=== PATIENT | female | born 2005 | race Caucasian/White ===

== ENCOUNTER 2024-05-09 12:18 | Emergency (ER) | payer OTHER, SELFPAY ==
--- NOTE | 2024-05-09 12:23 | ED.URI ---
HPI - URI/Sore Throat General Chief Complaint: Upper Respiratory Infection Stated Complaint: headache/sinus/throat History of Present Illness HPI Narrative: 19 y/o female presented for c/o sore throat, headache, and nasal congestion. Onset last night. Started z-pack this morning. Also taking Xycam and Sudafed. Denies cough, sob, wheezing, n/v/d/f/c. Related Data Allergies Allergy/AdvReac Type Severity Reaction Status Date / Time amoxicillin Allergy Mild Rash Verified 05/09/24 12:33 Cephalosporins Allergy Unknown RASH Verified 05/09/24 12:33 Penicillins Allergy Unknown Unknown Verified 05/09/24 12:33 Review of Systems Review of Systems: CONSTITUTIONAL: Denies body aches, fever, chills, or sweats. EYES: Denies visual changes, redness, or discharge. ENT: reports rhinorrhea, sore throat CARDIOVASCULAR: Denies chest pain, palpitations, or edema. RESPIRATORY: Denies dyspnea. GASTROINTESTINAL: Denies abdominal pain, nausea, vomiting, or diarrhea. SKIN: Denies rash NEUROLOGIC: reports headache PMFSH Past Medical History Medical History Depression with anxiety Fatigue Irregular menses Family History Family History Father Asthma Mother Depression Social History Social History Smoking status: Current every day smoker Tobacco type: e-cigarettes/vaping Gender identity (if verbalized by the patient): Female Exam Narrative: GENERAL: mildly ill-appearing, no acute distress. EYES: conjunctivae clear ENT: Mucous membranes moist. TM pearly chaves with normal light reflex bilaterally; no tragal tenderness. Oropharynx erythematous without lesions. Tonsils enlarged 1+ and without exudate. Hoarse voice. No drooling, no trismus, uvula midline. No tripod positioning, hot potato voice, or soft palate swelling. NECK: Supple. No lymphadenopathy CHEST: Clear to auscultation, breath sounds equal. No respiratory distress, speaks in full sentences. HEART: Regular rate and rhythm. No murmur heard. SKIN: Warm, dry, no rash. NEURO: Alert and oriented x3. Course Course Emergency Course: Patient is aware of diagnosis, understands and agrees to treatment plan. Anticipatory guidance given. Patient agrees to follow-up as directed and is aware of reasons to seek care at the emergency department. Portions of this record may have been created with voice recognition software Level of Care: Express Care Visit Vital Signs Vital signs: Vital Signs Oxygen Delivery Room Air 05/09/24 12:26 Temperature 99.1 F 05/09/24 12:33 Pulse Rate 94 05/09/24 12:33 Respiratory Rate 16 05/09/24 12:33 Blood Pressure 111/61 05/09/24 12:33 Pulse Oximetry 100 05/09/24 12:33 Oxygen Delivery Room Air 05/09/24 12:26 MDM - URI/Sore Throat MDM Narrative Medical decision making narrative: Neg flu covid and strep result reviewed with pt. Pt will continue her zpack she already started. Advised supportive treatments. Patient is appropriate for outpatient treatment and follow-up. Differential Diagnosis Differential diagnosis: Likely upper respiratory infection, viral infection and pharyngitis Lab Data Labs: Lab Results 05/09/24 Range/Units 12:26 POC Grp A Strep Screen Negative (Negative) Discharge Plan Discharge Clinical Impression: Pharyngitis Patient Disposition: Home, Self-Care Condition: Stable Instructions: Upper Respiratory Infection (ED) Additional Instructions: Rapid strep swab was negative today You will be notified in a few days if the culture comes back positive for strep. if symptoms are due to a viral illness, it is not treated with antibiotics. Viral symptoms can be present for up to 10-14 days. Recommendations: Flonase spray and Zyrtec for sinus congestion Cough syrup may cause drowsiness; avoid driving or take it at night time. Tylenol every 8 hours as needed for pain/fever Soft foods, cool liquids, warm tea. Gargle with warm saltwater twice a day. Chloraseptic spray and throat lozenges. Rest and stay hydrated. Must be fever free for 24 hours before returning to public: work/school etc --Follow up with your PCP --Go to the ER immediately if you cannot swallow your saliva, trouble breathing/wheezing, throat swelling, pain is persistent and severe Prescriptions: No Action Nexplanon 68 mg implant 1 implant subdermal ONCE Qty: 1 0RF Rx Instructions: as a single dose sertraline 50 mg tablet 50 mg PO DAILY Qty: 30 3RF Follow-up/Referrals: Erma Robb MD [Primary Care Provider] - Stand Alone Forms: Work/School Release IP Time of Disposition: 13:01
[2024-05-09 12:33] VITALS: BP 111/61; PULSE 94; RESP 16; TEMP 37.3; O2SAT 100
[2024-05-09 12:40] LABS: EDSTREPNEGPOS1 Negative (Negative)
[2024-05-09 13:01] LABS: EDCOVIDSCREEN Negative (Negative); EDINFLUASCREEN Negative (Negative); EDINFLUBSCREEN Negative (Negative)
== END 2024-05-09 13:03 | disposition home or self-care (01) ==
PROVIDERS: Emergency Provider Nurse Practitioner Family; PCP Pediatrics
DX: J02.9 Acute pharyngitis, unspecified (principal); Z20.822 Contact with and (suspected) exposure to COVID-19; F17.290 Nicotine dependence, other tobacco product, uncomplicated
CPT/HCPCS: 87081; 87426; 87804; 87880; 99213; G0463

== ENCOUNTER 2024-05-09 22:12 | Emergency (ER) | payer OTHER, SELFPAY ==
[2024-05-09 22:13] VITALS: BP 132/77; PULSE 118; RESP 16; TEMP 36.7; O2SAT 97
--- NOTE | 2024-05-09 22:51 | PC.NURSE ---
pt to desk, stating she wants to leave due to wait. pt advised to return if things get worse.
== END 2024-05-09 23:49 | disposition left against medical advice (07) ==
LOC: ANHED 23:46
PROVIDERS: PCP Pediatrics
DX: R51.9 Headache, unspecified (principal)
CPT/HCPCS: 99199

== ENCOUNTER 2024-07-26 12:37 | Emergency (ER) | payer OTHER, SELFPAY ==
[2024-07-26 13:20] VITALS: BP 108/66; PULSE 110; RESP 16; TEMP 36.6; O2SAT 100
--- NOTE | 2024-07-26 13:43 | ED.WOUNDLAC ---
HPI - Wound/Laceration General Chief Complaint: Wound/Laceration Stated Complaint: L HAND LACERATION Time Seen by Provider: 07/26/24 13:43 Source: patient, RN notes reviewed and old records reviewed Mode of arrival: ambulatory Limitations: no limitations History of Present Illness HPI narrative: 19-year-old female presents to the [facility] with a laceration to the left hand that occurred at 3:00 p.m. yesterday. 1 cm laceration noted to the palmar aspect of her hand. Has skin adhesive already applied. Has full range of motion, sensation intact Related Data Allergies Allergy/AdvReac Type Severity Reaction Status Date / Time amoxicillin Allergy Mild Rash Verified 06/08/24 11:57 Cephalosporins Allergy Unknown RASH Verified 06/08/24 11:57 Penicillins Allergy Unknown Unknown Verified 06/08/24 11:57 Review of Systems Review of Systems: All systems reviewed & are unremarkable except as noted in HPI and below Constitutional: Constitutional: Reports no additional constitutional complaints ENT: Reports system reviewed and no additional complaints, except as documented Cardiovascular: Cardiovascular: Reports no additional cardiovascular complaints, Denies chest pain and Denies dyspnea Respiratory: Respiratory: Reports no additional respiratory complaints, Denies chest congestion, Denies cough and Denies dyspnea Musculoskeletal: Musculoskeletal: Reports no additional musculoskeletal complaints Integumentary/Breasts: Skin/Breast: Reports as per HPI PMFSH Past Medical History Medical History Depression with anxiety Fatigue Irregular menses Family History Family History Father Asthma Mother Depression Social History Social History Smoking status: Current every day smoker Tobacco type: e-cigarettes/vaping Gender identity (if verbalized by the patient): Female Comments At the time of my signature, I reviewed and agree with the nursing past medical, surgical, social, and family history. There is no relevant family history pertinent to the patient complaint. Exam Const: General: cooperative, healthy appearing, comfortable, no acute distress, well developed, alert and well nourished Nutritional Appearance: well nourished Orientation/consciousness: patient oriented x3 Limitations: no limitations HENMT: Head: normal to inspection Eyes: General: appearance normal, both eyes and all related structures Alignment and Position: alignment normal Neck: Neck: normal visual inspection, full ROM, no lymphadenopathy and no meningeal signs Chest: Chest palpation & inspection: normal inspection of the chest Resp: Effort & Inspection: normal respiratory effort and able to speak in complete sentences Cardio: Rate: regular rate Skin: General skin exam: normal color and no rashes or lesions noted Other: Left hand palmar aspect 1 cm flap of skin noted. Patient was able to pick off the skin adhesive, no redness or inflammation. Bleeding is controlled. Neuro: General: patient oriented x3, gait normal, moves all extremities and no meningeal signs Cognition (Neuro): normal cognition Speech: normal speech Gait exam (Neuro): Normal gait present Extrem: General: normal to inspection, full ROM, capillary refill normal and normal gait Psych: Appearance: grossly normal and well kempt Mental Status: mental status grossly normal Speech and movement: Normal speech and movement present and Clear speech present Affect: normal affect Attitude: cooperative Course Course Level of Care: Express Care Visit Vital Signs Vital signs: Vital Signs Temperature 97.9 F 07/26/24 13:20 Pulse Rate 110 H 07/26/24 13:20 Respiratory Rate 16 07/26/24 13:20 Blood Pressure 108/66 07/26/24 13:20 Pulse Oximetry 100 07/26/24 13:20 Temperature 97.9 F 07/26/24 13:20 Pulse Rate 110 H 07/26/24 13:20 Respiratory Rate 16 07/26/24 13:20 Blood Pressure 108/66 07/26/24 13:20 Pulse Oximetry 100 07/26/24 13:20 Reviewed MDM - Wound/Laceration MDM Narrative Medical decision making narrative: Patient sitting in exam room. Nontoxic, vitals stable. Patient in no acute distress. Patient had cut her hand yesterday. Applied skin glue. Flap of skin noted. Patient is updated on tetanus here in clinic. Due to length of wound being open. Had closed it with skin glue at home, will cover with antibiotic Patient appropriate for outpatient treatment and follow-up Discharge instructions reviewed with patient, as well as provided in writing per nursing staff. The instructions also include specific and strict return/GO TO THE ER as well as f/u information. All questions have been answered, and the patient deny any further questions with discharge and discharge plan. Some parts of this dictation were generated by voice recognition software and may contain typographical and/or grammatical inaccuracies. Differential Diagnosis Differential diagnosis: Likely laceration, abrasion and avulsion of skin Critical Care Time Critical Care Time Critical Care Time: No Discharge Plan Discharge Clinical Impression: Vaccine for [id number], combined Hand laceration Qualifiers: Encounter type: initial encounter Foreign body presence: without foreign body Laterality: left Qualified Code(s): S61.412A - Laceration without foreign body of left hand, initial encounter Patient Disposition: Home, Self-Care Condition: Stable Instructions: Antibiotic Form, Puncture Wound (ED) Additional Instructions: Keep area clean and dry. Wash frequently with warm soapy water and pat dry. Keep it bandaged when not at home. Try leaving open to air when at home. Take the antibiotic for to reduce the chances of infection. Whenever you are on antibiotics it is recommended that you eat a yogurt a day or take a probiotic to reduce the chances of side effects. Follow-up with primary care provider For worsening symptoms go directly to the emergency room Patient Language: Kiswahili Prescriptions: New clindamycin HCl 300 mg capsule 300 mg PO TID 7 Days Qty: 21 0RF No Action Nexplanon 68 mg implant 1 implant subdermal ONCE Qty: 1 0RF Rx Instructions: as a single dose sertraline 50 mg tablet 50 mg PO DAILY Qty: 30 3RF Follow-up/Referrals: UNKNOWN,DOCTOR [Primary Care Provider] - Time of Disposition: 14:01
[2024-07-26] MEDS: TETANUS,DIPHTHERIA,AC PERTUSSIS ADULT (0.5 ML) BOOSTRIX IM (14:04)
== END 2024-07-26 14:26 | disposition home or self-care (01) ==
PROVIDERS: Emergency Provider Nurse Practitioner
DX: S61.412A Laceration without foreign body of left hand, initial encounter (principal); X58.XXXA Exposure to other specified factors, initial encounter; Z23 Encounter for immunization; F17.290 Nicotine dependence, other tobacco product, uncomplicated
CPT/HCPCS: 90471; 90715; 99213; G0463

== ENCOUNTER 2025-05-11 10:49 | Emergency (ER) | payer OTHER, SELFPAY ==
[2025-05-11 10:58] VITALS: BP 114/65; PULSE 112; RESP 16; TEMP 36.3; O2SAT 100
[2025-05-11] MEDS: dexAMETHasone SOD PHOS INJ 10 MG/ML 1 ML VIAL IM (11:26)
--- NOTE | 2025-05-11 11:54 | ED.ALLEREA ---
HPI - Allergic Reaction General Chief complaint: Allergic Reaction Stated complaint: ALLERGIC REACTION Time Seen by Provider: 05/11/25 11:20 Source: patient, family (Mother) and RN notes reviewed Mode of arrival: ambulatory Limitations: no limitations History of Present Illness HPI narrative: Mother presents 20-year-old female patient today with an allergic reaction. Patient started minocycline last week, last dose was last night. Believes this may be causing an allergic reaction. She started itching at 3:00 a.m. this morning, and now has a rash allover her body except face. She took 1 Benadryl at home around 530 this morning, has tried some topical eczema cream and hydrocortisone without improvement. She complained of some mild shortness of breath upon arrival. Denies swelling of the face, mouth, difficulty swallowing, nausea or vomiting. Related Data Home Medications ?Medication ?Instructions ?Recorded ?Confirmed ?Last Taken ?Type minocycline 100 mg capsule mg 05/11/25 Unknown History tretinoin 0.025 % topical cream applic topical 05/11/25 Unknown History Allergies Allergy/AdvReac Type Severity Reaction Status Date / Time amoxicillin Allergy Mild Rash Verified 05/11/25 11:17 Cephalosporins Allergy Unknown RASH Verified 05/11/25 11:17 Penicillins Allergy Unknown Unknown Verified 05/11/25 11:17 PMFSH Past Medical History Medical History Depression with anxiety Fatigue Irregular menses Family History Family History Father Asthma Mother Depression Social History Social History Smoking status: Current every day smoker Tobacco type: e-cigarettes/vaping Gender identity (if verbalized by the patient): Female Comments At time of signature, I have reviewed and agree with nursing past medical, surgical, social and family history unless otherwise noted. Please see nursing chart for further information. There is no relevant family history pertinent to the presenting complaint Exam Narrative: GENERAL: Well-appearing, well-nourished, and in no acute distress. HEAD: Normocephalic, atraumatic. EYES: EOMI. No redness or drainage. Conjunctivae normal. ENT: Mucous membranes pink and moist. Nares clear. No rhinorrhea. TMs normal bilaterally. Throat normal. Uvula midline. NECK: Normal AROM. Supple. No lymphadenopathy. CHEST: No respiratory distress. Clear to auscultation. HEART: Regular rate and rhythm. No murmur appreciated. EXTREMITIES: Normal range of motion. No edema. SKIN: Warm, dry. Capillary refill normal. Normal skin turgor.+ large urticarial lesions over body surface, sparing the face. NEURO: No focal deficits. Alert and oriented x3. Gait steady. PSYCH: Normal affect. No signs of depression or anxiety. Course Course Level of Care: Express Care Visit Vital Signs Vital signs: Vital Signs Temperature 97.4 F L 05/11/25 10:58 Pulse Rate 112 H 05/11/25 10:58 Respiratory Rate 16 05/11/25 10:58 Blood Pressure 114/65 05/11/25 10:58 Pulse Oximetry 100 05/11/25 10:58 Temperature 97.4 F L 05/11/25 10:58 Pulse Rate 112 H 05/11/25 10:58 Respiratory Rate 16 05/11/25 10:58 Blood Pressure 114/65 05/11/25 10:58 Pulse Oximetry 100 05/11/25 10:58 Reviewed MDM - Allergic Reaction MDM Narrative Medical decision making narrative: Mother presents 20-year-old female patient today with an allergic reaction. Patient started minocycline last week, last dose was last night. Believes this may be causing an allergic reaction. She started itching at 3:00 a.m. this morning, and now has a rash allover her body except face. She took 1 Benadryl at home around 530 this morning, has tried some topical eczema cream and hydrocortisone without improvement. She complained of some mild shortness of breath upon arrival. Denies swelling of the face, mouth, difficulty swallowing, nausea or vomiting. Upon exam, patient has no facial swelling and appears to not be short of breath or have any difficulty swallowing. She is managing her secretions well. Patient has large urticarial lesions over the body surface, sparing the face. This rash may be due to new minocycline medication. Patient took 1 Benadryl home early this morning. Upon arrival, she was given 10 mg IM dexamethasone injection as well as 1 25 mg IM Benadryl injection. She will be given 4 days of prednisone burst. Half-life of minocycline 16 hours, so she will not be rid of the medication for approximately 2-3.5 days. Discussed antihistamine use as well. Patient and mother agree with plan. Vital signs stable. Anticipatory guidance given. Differential Diagnosis Differential diagnosis: Likely anaphylaxis, allergic reaction, angioedema, contact dermatitis, adverse reaction to drug, viral enanthem and urticaria Critical Care Time Critical Care Time Critical Care Time: No Discharge Plan Discharge Clinical Impression: Urticaria Patient Disposition: Home Condition: Stable Instructions: Urticaria (ED) Additional Instructions: You have been given a dose of Benadryl and your 1st dose of steroids here at [facility]. Start the prednisone prescription tomorrow and take as directed. Continue an antihistamine such as Zyrtec, Claritin, or Joselyn to help with itching and inflammation. As discussed, if you develop any facial swelling, difficulty breathing or swallowing, please go to the ER immediately for further evaluation. Patient Language: Cymro Prescriptions: New prednisone 50 mg tablet 50 mg PO DAILY 4 Days Qty: 4 0RF No Action tretinoin 0.025 % cream TOPICAL minocycline 100 mg capsule Nexplanon 68 mg implant 1 implant subdermal ONCE Qty: 1 0RF Rx Instructions: as a single dose sertraline 50 mg tablet 50 mg PO DAILY Qty: 30 3RF Follow-up/Referrals: Dakota,MD Amparo [Primary Care Provider, [facility]] Time of Disposition: 12:01
== END 2025-05-11 12:02 | disposition home or self-care (01) ==
PROVIDERS: Emergency Provider Nurse Practitioner; PCP Family Medicine
DX: L50.9 Urticaria, unspecified (principal); F17.290 Nicotine dependence, other tobacco product, uncomplicated
CPT/HCPCS: 96372; 99214; G0463; J1100; J1200